=== PATIENT | male | born 1995 | race Caucasian/White ===

== ENCOUNTER 2022-11-02 11:42 | Emergency (ER) | payer BC, OTHER ==
[2022-11-02 12:31] LABS: Urine Blood 3+ (Negative); Urine Glucose Negative (Negative); Urine Protein Negative (Negative)
--- NOTE | 2022-11-02 13:17 | RAD REPORT ---
EXAM DESCRIPTION: CT - Stone Protocol - 11/02/2022 1:05 pm CLINICAL HISTORY: Flank pain, kidney stone suspected COMPARISON: Stone Protocol dated 11/04/2017 TECHNIQUE: Axial 3 mm thick images were obtained without oral or IV contrast. The [id number] span s the entirety of the system including uppermost abdomen and lung bases. All CT scans are performed using dose optimization technique as appropriate and may include automated exposure control or mA/KV adjustment according to patient size. FINDINGS: Mild to moderate dilatation of the pelvis, calices and proximal ureter on the right noted secondary to a 6 mm obstructing calculus in the mid right ureter. A punctate 1 mm calcification is pr esent in the posterior calyx mid right kidney. No left-sided hydronephrosis or renal calculi. No susp icious renal masses. Isodense masses and pyelonephritis are not excluded on a stone protocol CT scan. No significant adrenal finding. Partially filled urinary bladder shows no suspicious finding. Imaged portions of the liver, spleen and pancreas show no suspicious findings on non-contrast imaging . No gallbladder or biliary tree abnormality identified. No suspicious bowel findings. No hernia, mass or bulky lymphadenopathy noted. No free air, free fluid or inflammatory stranding. No acute bone finding. Left convex lumbar scoliosis again noted. IMPRESSION: [id number] right-sided hydronephrosis secondary to a 6 mm mid right ureter calcifi cation. Isodense masses and pyelonephritis are not excluded on stone protocol technique.
[2022-11-02] MEDS ORDERED: KETOROLAC 30 MG/ML INJ ONE (13:44)
[2022-11-02 16:32] LABS: Absolute Lymphocytes (CBC) 1.9 K/uL (0.7-4.9); Hematocrit 44.3 % (39.6-49.0); Lymphocytes % 27.2 % (15.3-44.8); MPV 7.8 fL (7.6-11.3); RBC Red Blood Cell Count 4.86 M/uL (4.33-5.43)
[2022-11-02 16:47] LABS: Albumin 4.2 g/dL (3.4-5.0); Bilirubin Total 0.4 mg/dL (0.2-1.0); Protein, Total 7.5 g/dL (6.4-8.2)
--- NOTE | 2022-11-02 16:51 | ER ---
Nurse's Notes [facility] Name: Caleb Lind Age: 27 yrs Sex: Male : 1995 Arrival Date: 11/02/2022 Time: 11:43 Bed 9 Private MD: Diagnosis: Hydronephrosis with renal and ureteral calculous obstruction-6mm mid ureter Presentation: 11/02 12:03 Chief complaint: Patient states: right flank pain since Saturday with hx of kidney kb3 stones. Pt reports he was placed on amox, Flomax and T3 on Saturday night and pain improved until this morning. Coronavirus screen: Vaccine status: Patient reports receiving the 2nd dose of the covid vaccine. Client denies travel out of the [place] in the last 14 days. Ebola Screen: Patient negative for fever greater than or equal to 101.5 degrees Fahrenheit, and additional compatible Ebola Virus Disease symptoms Patient denies exposure to infectious person. Patient denies travel to an Ebola-affected area in the 21 days before illness onset. Initial Sepsis Screen: Does the patient meet any 2 criteria? No. Patient's initial sepsis screen is negative. Does the patient have a suspected source of infection? No. Patient's initial sepsis screen is negative. Risk Assessment: Do you want to hurt yourself or someone else? Patient reports no desire to harm self or others. Onset of symptoms was October 30, 2021. 12:03 Method Of Arrival: Wheelchair kb3 12:03 Acuity: SPENCER 3 kb3 Triage Assessment: 12:06 General: Appears in no apparent distress. Behavior is calm, cooperative. Pain: kb3 Complains of pain in right low back Pain radiates to right lower quadrant Pain currently is 2 out of 10 on a pain scale. at worst was 7 out of 10 on a pain scale. Quality of pain is described as pressure, sharp. : Reports pain in right flank(s). Historical: - Allergies: 12:06 Tegaderm AG Mesh; kb3 - Home Meds: 12:06 None [Active]; kb3 - PMHx: 12:06 Cerebral Palsy; kb3 - PSHx: 12:06 Multiple orthopedic surgeries; kb3 - Immunization history:: Adult Immunizations up to date, Client reports receiving the 2nd dose of the Covid vaccine, Last tetanus immunization: up to date. - Social history:: Smoking status: Patient denies any tobacco usage or history of. unknown. Screenin:17 [facility] ED Fall Risk Assessment (Adult) History of falling in the last 3 months, kr3 including since admission No falls in past 3 months (0 pts) Confusion or Disorientation No (0 pts) Intoxicated or Sedated No (0 pts) Impaired Gait No (0 pts) Mobility Assist Device Used No (0 pt) Altered Elimination No (0 pt) Score/Fall Risk Level 0 - 2 = Low Risk. Abuse screen: Denies threats or abuse. Nutritional screening: No deficits noted. Tuberculosis screening: No symptoms or risk factors identified. Assessment: 12:15 General: Appears in no apparent distress. comfortable, Behavior is calm, cooperative, kr3 appropriate for age. Pain: Complains of pain in right low back. Neuro: Level of Consciousness is awake, alert, obeys commands, Oriented to person, place, time, situation. Cardiovascular: Patient's skin is warm and dry. Respiratory: Airway is patent Respiratory effort is even, unlabored, Respiratory pattern is regular, symmetrical. GI: Abdomen is round non-distended. EENT: No signs and/or symptoms were reported regarding the EENT system. Derm: No signs and/or symptoms reported regarding the dermatologic system. Musculoskeletal: Range of motion: limited in bilateral lower extremities. 13:30 Reassessment: Patient appears in no apparent distress at this time. Patient and/or kr3 family updated on plan of care and expected duration. Pain level reassessed. Patient is alert, oriented x 3, equal unlabored respirations, skin warm/dry/pink. 15:03 Reassessment: Patient appears in no apparent distress at this time. Patient and/or kr3 family updated on plan of care and expected duration. Pain level reassessed. Patient is alert, oriented x 3, equal unlabored respirations, skin warm/dry/pink. 16:30 Reassessment: Patient appears in no apparent distress at this time. Patient and/or kr3 family updated on plan of care and expected duration. Pain level reassessed. Patient is alert, oriented x 3, equal unlabored respirations, skin warm/dry/pink. 17:12 Reassessment: Patient appears in no apparent distress at this time. Patient and/or kr3 family updated on plan of care and expected duration. Pain level reassessed. Patient is alert, oriented x 3, equal unlabored respirations, skin warm/dry/pink. Vital Signs: 12:03 BP 144 / 88; Pulse 84; Resp 20; Temp 99.1; Pulse Ox 99% ; Weight 86.18 kg; Height 5 ft. kb3 4 in. (162.56 cm); Pain 2/10; 15:03 BP 130 / 93; Pulse 64; Resp 18; Pulse Ox 100% ; kr3 16:10 BP 124 / 91; Pulse 81; Resp 18; Pulse Ox 100% on R/A; kr3 17:12 BP 119 / 94; Pulse 85; Resp 18; Pulse Ox 100% on R/A; kr3 12:03 Body Mass Index 32.61 (86.18 kg, 162.56 cm) kb3 ED Course: 11:43 Patient arrived in ED. am2 12:03 Agnieszka Ruggiero FNP-C is PHCP. snw 12:03 Jerry Kinney DO is Attending Physician. snw 12:06 Triage completed. kb3 12:06 Arm band placed on right wrist. kb3 12:08 Karen Bolanos, BETO is Primary Nurse. kr3 13:07 CT Stone Protocol In Process Unspecified. EDMS 16:26 CBC with Diff Sent. ss 16:26 CMP Sent. ss 16:26 Inserted saline lock: 22 gauge in left antecubital area, using aseptic technique. Blood ss collected. 17:18 No provider procedures requiring assistance completed. IV discontinued, intact, kr3 bleeding controlled, No redness/swelling at site. Pressure dressing applied. 17:19 Bed in low position. Call light in reach. Side rails up X 1. kr3 Administered Medications: 13:51 Drug: Ketorolac 60 mg Route: IM; Site: right deltoid; kr3 17:19 Follow up: Response: No adverse reaction kr3 Medication: 17:19 VIS not applicable for this client. kr3 Outcome: 16:50 Discharge ordered by . snw 17:11 Patient left the ED. kr3 17:18 Discharged to home ambulatory. kr3 17:18 Condition: stable 17:18 Discharge instructions given to patient, Instructed on discharge instructions, follow up and referral plans. Demonstrated understanding of instructions, follow-up care. Signatures: Dispatcher [employer] EDMS Agnieszka Ruggiero FNP-C FUNERAL DRIVER-Csnw Dagmar Hinojosa, RN RN ss Karla Canela am2 Karen Bolanos, RN RN kr3 Liliya Busby, RN RN kb3
--- NOTE | 2022-11-02 16:51 | EDPHYS ---
Physician Documentation [facility] Name: Caleb Lind Age: 27 yrs Sex: Male : 1995 Arrival Date: 11/02/2022 Time: 11:43 Bed 9 Private MD: ED Physician Jerry Kinney HPI: 11/02 16:52 This 27 yrs old Male presents to ER via Wheelchair with complaints of Flank Pain. snw Historical: - Allergies: 12:06 Tegaderm AG Mesh; kb3 - Home Meds: 12:06 None [Active]; kb3 - PMHx: 12:06 Cerebral Palsy; kb3 - PSHx: 12:06 Multiple orthopedic surgeries; kb3 - Immunization history:: Adult Immunizations up to date, Client reports receiving the 2nd dose of the Covid vaccine, Last tetanus immunization: up to date. - Social history:: Smoking status: Patient denies any tobacco usage or history of. unknown. ROS: 13:26 Constitutional: Negative for fever, chills, and weight loss, Eyes: Negative for injury, snw pain, redness, and discharge, ENT: Negative for injury, pain, and discharge, Neck: Negative for injury, pain, and swelling, Cardiovascular: Negative for chest pain, palpitations, and edema, Respiratory: Negative for shortness of breath, cough, wheezing, and pleuritic chest pain, Abdomen/GI: Negative for abdominal pain, nausea, vomiting, diarrhea, and constipation, : Negative for injury, bleeding, discharge, and swelling, MS/Extremity: Negative for injury and deformity, Skin: Negative for injury, rash, and discoloration, Neuro: Negative for headache, weakness, numbness, tingling, and seizure. 13:26 Back: Positive for flank pain, on the right. Exam: 13:26 Constitutional: This is a well developed, well nourished patient who is awake, alert, snw and in no acute distress. Head/Face: Normocephalic, atraumatic. Eyes: Pupils equal round and reactive to light, extra-ocular motions intact. Lids and lashes normal. Conjunctiva and sclera are non-icteric and not injected. Cornea within normal limits. Periorbital areas with no swelling, redness, or edema. Neck: Trachea midline, no thyromegaly or masses palpated, and no cervical lymphadenopathy. Supple, full range of motion without nuchal rigidity, or vertebral point tenderness. No Meningismus. Chest/axilla: Normal chest wall appearance and motion. Nontender with no deformity. No lesions are appreciated. Cardiovascular: Regular rate and rhythm with a normal S1 and S2. No gallops, murmurs, or rubs. Normal PMI, no JVD. No pulse deficits. Respiratory: Lungs have equal breath sounds bilaterally, clear to auscultation and percussion. No rales, rhonchi or wheezes noted. No increased work of breathing, no retractions or nasal flaring. Abdomen/GI: Soft, non-tender, with normal bowel sounds. No distension or tympany. No guarding or rebound. No evidence of tenderness throughout. Back: No spinal tenderness. No costovertebral tenderness. Full range of motion. Skin: Warm, dry with normal turgor. Normal color with no rashes, no lesions, and no evidence of cellulitis. 13:26 Neuro: CP, paraparesis. Vital Signs: 12:03 BP 144 / 88; Pulse 84; Resp 20; Temp 99.1; Pulse Ox 99% ; Weight 86.18 kg; Height 5 ft. kb3 4 in. (162.56 cm); Pain 2/10; 15:03 BP 130 / 93; Pulse 64; Resp 18; Pulse Ox 100% ; kr3 16:10 BP 124 / 91; Pulse 81; Resp 18; Pulse Ox 100% on R/A; kr3 17:12 BP 119 / 94; Pulse 85; Resp 18; Pulse Ox 100% on R/A; kr3 12:03 Body Mass Index 32.61 (86.18 kg, 162.56 cm) kb3 MDM: 12:41 Patient medically screened. snw 16:51 Data reviewed: vital signs, nurses notes. Data interpreted: Pulse oximetry: on room air snw is 100 %. Interpretation: normal. Counseling: I had a detailed discussion with the patient and/or guardian regarding: the historical points, exam findings, and any diagnostic results supporting the discharge/admit diagnosis, the presence of at least one elevated blood pressure reading (>120/80) during this emergency department visit, lab results, radiology results, the need for outpatient follow up, to return to the emergency department if symptoms worsen or persist or if there are any questions or concerns that arise at home. Special discussion: Based on the history and exam findings, there is no indication for further emergent testing or inpatient evaluation. I discussed with the patient/guardian the need to see the primary care provider for further evaluation of the symptoms. I discussed with the patient/guardian the need to see the urologist for further evaluation of the symptoms. 11/02 12:31 Order name: Urine Dipstick-Ancillary; Complete Time: 12:41 EDMS 11/02 14:57 Order name: CMP; Complete Time: 16:49 snw 11/02 12:41 Order name: CT Stone Protocol; Complete Time: 13:19 snw 11/02 14:57 Order name: CBC with Diff; Complete Time: 16:39 snw Administered Medications: 13:51 Drug: Ketorolac 60 mg Route: IM; Site: right deltoid; kr3 17:19 Follow up: Response: No adverse reaction kr3 Disposition: 16:14 Co-signature as Attending Physician, Jerry WALTERS was immediately available on-site ms3 in the Emergency Department for consultation in the care of the patient. Disposition Summary: 11/02/22 16:50 Discharge Ordered Location: Home snw Condition: Stable snw Diagnosis - Hydronephrosis with renal and ureteral calculous obstruction - 6mm mid ureter snw Followup: snw - With: Emergency Department - When: As needed - Reason: Worsening of condition Followup: snw - With: Private Physician - When: 2 - 3 days - Reason: Recheck today's complaints, Continuance of care, Re-evaluation by your physician Discharge Instructions: - Discharge Summary Sheet snw - Kidney Stones snw - Hydronephrosis snw - Dietary Guidelines to Help Prevent Kidney Stones snw - Rehydration, Adult snw Forms: - Medication Reconciliation Form snw - Thank You Letter snw - Antibiotic Education snw - Prescription Opioid Use snw - Work release form snw Prescriptions: - promethazine 25 mg Oral Tablet - take 1 tablet by ORAL route every 6 hours As needed; 20 tablet; Refills: 0, snw Product Selection Permitted Signatures: Dispatcher [employer] EDMA Agnieszka Ruggiero FNP-C ACOUSTIC INTELLIGENCE SPECIALIST-CsnJerry Gonzalez DO DO ms3 Karen Bolanos RN RN kr3 Qi, Liliya, RN RN kb3
[2022-11-02 17:17] VITALS: TEMP 99.1
[2022-11-02 17:18] VITALS: BP 130/93; O2SAT 100
== END 2022-11-02 17:11 | disposition home or self-care (01) ==
LOC: ER 11:42
DX: N13.2 Hydronephrosis with renal and ureteral calculous obstruction (principal); Z87.442 Personal history of urinary calculi; Z91.048 Other nonmedicinal substance allergy status
CPT/HCPCS: 36415; 74176; 76377; 80053; 81003; 85025; 96372; 99284